=== PATIENT | male | born 1990 | race Caucasian/White ===

== ENCOUNTER 2017-10-10 23:04 | Emergency (ER) | payer SELFPAY ==
[2017-10-11] MEDS ORDERED: Ketorolac Tromethamine 30 MG/ML VIAL ONE (00:19)
== END 2017-10-11 00:30 | disposition home or self-care (01) ==
LOC: ERS 23:04
DX: M54.42 Lumbago with sciatica, left side (principal); M54.41 Lumbago with sciatica, right side; G43.909 Migraine, unspecified, not intractable, without status migrainosus; F17.210 Nicotine dependence, cigarettes, uncomplicated
CPT/HCPCS: 96372; J1885

== ENCOUNTER 2017-10-25 23:51 | Emergency (ER) | payer SELFPAY ==
[2017-10-26] MEDS ORDERED: HYDROcodone/Acetaminophen 10/325 mg Tablet ONE (00:25)
--- NOTE | 2017-10-26 07:52 | RAD ---
LUMBAR SPINE 3 VIEWS: Date: 10/26/17 HISTORY: Low back pain. FINDINGS/IMPRESSION: No fracture, subluxation, or bony destruction is seen. POS: [facility]
== END 2017-10-26 01:35 | disposition home or self-care (01) ==
LOC: ERS 23:51
DX: M54.42 Lumbago with sciatica, left side (principal); G43.909 Migraine, unspecified, not intractable, without status migrainosus; F17.210 Nicotine dependence, cigarettes, uncomplicated
CPT/HCPCS: 72100

== ENCOUNTER 2018-02-04 22:10 | Emergency (ER) | payer SELFPAY ==
[2018-02-04 22:43] LABS: #Basophils 0.1 thou/uL (0.0-0.2); #Eosinphils 0.5 thou/uL (0.0-0.7); #Lymphocytes 3.7 thou/uL (1.20-3.40); #Monocytes 0.8 thou/uL (0.11-0.59); #Neutrophils 4.1 thou/uL (1.40-6.50); %Basophils 1.1 % (0.0-1.0); %Eosinophils 5.9 % (0.0-10.0); %Lymphocytes 39.9 % (21.0-51.0); %Monocytes 9.1 % (0.0-10.0); Hemoglobin 15.3 g/dL (14.0-18.0); Mean Corpuscular HGB CONC 35.4 g/dL (32.0-36.0); Mean Corpuscular Hemoglobin 33.3 pg (27.0-31.0); Mean Corpuscular Volume 94.2 fl (80.0-94.0); Mean Platelet Volume 6.8 fL (7.4-10.4); Platelet Count 328 thou/uL (130-400); RBC Distribution Width 10.8 % (11.5-14.5); Red Blood Cell (RBC) Count 4.58 mill/uL (4.70-6.10); White Blood Cell (WBC) Count 9.3 thou/uL (4.8-10.8)
[2018-02-04 23:04] LABS: ALT (SGPT) 35 U/L (8-55); AST (SGOT) 17 U/L (5-34); Albumin 4.4 g/dL (3.5-5.0); Alkaline Phosphatase 83 U/L (40-150); Anion Gap 12 mmol/L (10-20); BUN (Urea Nitrogen) 20 mg/dL (8.9-20.6); Bilirubin, Total 0.4 mg/dL (0.2-1.2); CK (CPK) 136 U/L (30-200); Calc. Creatinine Clearance 0 mL/min (70-130); Calcium 9.3 mg/dL (7.8-10.44); Carbon Dioxide 26 mmol/L (22-29); Chloride 105 mmol/L (98-107); Estimated GFR-MDRD 71; Globulin 2.9 g/dL (2.4-3.5); Glucose 93 mg/dL (70-105); Protein, Total 7.3 g/dL (6.0-8.3); Sodium 139 mmol/L (136-145)
[2018-02-04 23:07] LABS: CKMB 0.9 ng/mL (0-6.6); Troponin I Less than 0.010 ng/mL (< 0.028)
--- NOTE | 2018-02-04 23:14 | RAD ---
PA AND LATERAL CHEST: Indication: Weakness, dizziness. Comparison: None. FINDINGS: Lungs are clear. Cardiomediastinal silhouette is within normal limits. No acute osseous abnormality i s evident. IMPRESSION: No acute cardiopulmonary abnormality. POS: [facility]
[2018-02-04] MEDS ORDERED: Diazepam 5 MG TAB ONE (23:28)
[2018-02-04] MEDS ORDERED: Ondansetron HCl/PF 4 MG/2 ML Vial ONE (23:28)
[2018-02-05 00:12] LABS: Bilirubin Negative (Negative); Blood, Urine Negative (Negative); Clarity TURBID (Clear); Glucose, Urine (Dipstick) Negative (Negative); Leukocyte Negative (Negative); Nitrite Negative (Negative); Protein, Urine (Dipstick) Negative (Neg-Trace); Specific Gravity, Urine 1.017 (1.002-1.036); pH, Urine 7.5 (5.0-9.0)
[2018-02-05] MEDS ORDERED: Acetaminophen 500 MG TAB ONE (00:50)
--- NOTE | 2018-02-10 20:24 | EKG ---
Test Reason : Blood Pressure : / mmHG Vent. Rate : 084 BPM Atrial Rate : 084 BPM P-R Int : 132 ms QRS Dur : 090 ms QT Int : 344 ms P-R-T Axes : 068 058 068 degrees QTc Int : 406 ms Normal sinus rhythm Normal ECG Confirmed by CHRIS KIRKPATRICK ([id number]), editorial writer MOHINI BLOCK ([id number]) on 02/10/2018 8:23:34 PM Referred By: Confirmed By:CHRIS KIRKPATRICK
== END 2018-02-05 01:08 | disposition home or self-care (01) ==
LOC: ERS 22:10
DX: R07.89 Other chest pain (principal); G43.909 Migraine, unspecified, not intractable, without status migrainosus; F17.210 Nicotine dependence, cigarettes, uncomplicated
CPT/HCPCS: 36415; 71046; 80053; 81003; 82550; 82553; 83690; 84484; 85025; 93005; 96361; 96374; J2405

== ENCOUNTER 2018-04-16 03:55 | Emergency (ER) | payer SELFPAY ==
[2018-04-16] MEDS ORDERED: Ketorolac Tromethamine 60 MG/2 ML VIAL ONE (05:32)
--- NOTE | 2018-04-16 08:28 | RAD ---
THREE VIEWS OF CERVICAL SPINE: DATE: 04/16/18. COMPARISON: None. HISTORY: Right-sided neck pain and shoulder pain which began 1 day ago, pain with movement. FINDINGS: Cervical vertebral body height and alignment are within normal limits. Open-mouth odontoid view demo nstrates a normal-appearing dens in C1-2 articulation. No prevertebral soft tissue swelling noted. If symptoms persist, cross-sectional imaging is advised. IMPRESSION: No acute findings. POS: [facility]
== END 2018-04-16 06:32 | disposition home or self-care (01) ==
LOC: ERS 03:55
DX: S13.9XXA Sprain of joints and ligaments of unspecified parts of neck, initial encounter (principal); M62.838 Other muscle spasm; G43.909 Migraine, unspecified, not intractable, without status migrainosus; F17.210 Nicotine dependence, cigarettes, uncomplicated; X50.0XXA Overexertion from strenuous movement or load, initial encounter
CPT/HCPCS: 72040; 96372; J1885

== ENCOUNTER 2018-06-27 19:45 | Emergency (ER) | payer SELFPAY ==
--- NOTE | 2018-06-27 21:09 | RAD ---
RIGHT HAND THREE VIEWS: 06/27/18 COMPARISON: 03/21/15. HISTORY: Injury and pain. FINDINGS: Joint spaces are preserved. No fracture. No cortical irregularity or periosteal reaction. IMPRESSION: No fracture. POS: [facility]
== END 2018-06-27 21:13 | disposition home or self-care (01) ==
LOC: ERS 19:45
DX: S60.221A Contusion of right hand, initial encounter (principal); F17.210 Nicotine dependence, cigarettes, uncomplicated; W22.01XA Walked into wall, initial encounter

== ENCOUNTER 2018-07-19 21:16 | Emergency (ER) | payer SELFPAY ==
[2018-07-19] MEDS ORDERED: HYDROcodone/Acetaminophen 10/325 mg Tablet ONE (23:25)
--- NOTE | 2018-07-19 23:43 | RAD ---
SINGLE VIEW OF THE ABDOMEN: 07/19/18 COMPARISON: None. HISTORY: Constipation for a week. FINDINGS: Single view of the abdomen shows a nonspecific, nonobstructive bowel gas pattern. Cholecystectomy cli ps are seen. No significant stool retention is seen. IMPRESSION: Nonobstructive bowel gas pattern. POS: [facility]
[2018-07-20] MEDS ORDERED: Magnesium Citrate 300 ML BOT ONE (00:03)
== END 2018-07-20 00:32 | disposition home or self-care (01) ==
LOC: ERS 21:16
DX: K64.4 Residual hemorrhoidal skin tags (principal); K59.00 Constipation, unspecified; G43.909 Migraine, unspecified, not intractable, without status migrainosus; F17.210 Nicotine dependence, cigarettes, uncomplicated
CPT/HCPCS: 74018; 99406

== ENCOUNTER 2018-08-20 19:39 | Emergency (ER) | payer SELFPAY ==
--- NOTE | 2018-08-20 20:15 | RAD ---
RIGHT HAND THREE VIEWS: HISTORY: Right hand pain. FINDINGS: Joint spaces are preserved. No acute fracture, dislocation, or aggressive osseous erosions. IMPRESSION: No acute osseous abnormalities are demonstrated. POS: [facility]
== END 2018-08-20 20:28 | disposition home or self-care (01) ==
LOC: ERS 19:39
DX: S60.221A Contusion of right hand, initial encounter (principal); F17.210 Nicotine dependence, cigarettes, uncomplicated; W22.03XA Walked into furniture, initial encounter

== ENCOUNTER 2018-09-01 21:27 | Emergency (ER) | payer SELFPAY ==
--- NOTE | 2018-09-01 21:54 | RAD ---
RIGHT SHOULDER THREE VIEWS: 09/01/18 HISTORY: Right shoulder injury. FINDINGS: Acromioclavicular and glenohumeral alignment are maintained. No acute fracture or dislocation. IMPRESSION: No acute osseous abnormalities are demonstrated. POS: [facility]
[2018-09-01] MEDS ORDERED: HYDROcodone/Acetaminophen 10/325 mg Tablet ONE (22:19)
== END 2018-09-01 22:52 | disposition home or self-care (01) ==
LOC: ERS 21:27
DX: S43.401A Unspecified sprain of right shoulder joint, initial encounter (principal); J45.909 Unspecified asthma, uncomplicated; G43.909 Migraine, unspecified, not intractable, without status migrainosus; F17.210 Nicotine dependence, cigarettes, uncomplicated; Z71.6 Tobacco abuse counseling; X50.9XXA Other and unspecified overexertion or strenuous movements or postures, initial encounter; Y99.0 Civilian activity done for income or pay
CPT/HCPCS: 99406

== ENCOUNTER 2018-10-12 14:29 | Emergency (ER) | payer SELFPAY ==
[2018-10-12] MEDS ORDERED: Ketorolac Tromethamine 60 MG/2 ML VIAL ONE (14:57)
--- NOTE | 2018-10-12 15:37 | RAD ---
CHEST TWO VIEWS: 10/12/18 COMPARISON: 02/04/18. HISTORY: Cough. FINDINGS: Normal cardiac silhouette. Pulmonary vessels and hilum are normal. Costophrenic angles are clear. No mass. No consolidation. No pneumothorax or osseous abnormalities. IMPRESSION: No acute cardiopulmonary process. POS: [facility]
[2018-10-12] MEDS ORDERED: Dexamethasone 10 MG/ML VIAL ONE (15:44)
--- NOTE | 2018-10-17 14:56 | EKG ---
Test Reason : Blood Pressure : / mmHG Vent. Rate : 076 BPM Atrial Rate : 076 BPM P-R Int : 124 ms QRS Dur : 082 ms QT Int : 364 ms P-R-T Axes : 064 052 046 degrees QTc Int : 409 ms Normal sinus rhythm Normal ECG Confirmed by SHAYY KERN D.O. ([id number]), editorial specialist MOHINI BLOCK ([id number]) on 10/17/2018 2:56:43 PM Referred By: Confirmed By:SHAYY KERN D.O.
== END 2018-10-12 16:26 | disposition home or self-care (01) ==
LOC: ERS 14:29
DX: J45.909 Unspecified asthma, uncomplicated (principal); G43.909 Migraine, unspecified, not intractable, without status migrainosus; F17.210 Nicotine dependence, cigarettes, uncomplicated
CPT/HCPCS: 71046; 93005; 96372; J1100; J1885

== ENCOUNTER 2018-11-07 23:52 | Emergency (ER) | payer SELFPAY ==
[2018-11-08] MEDS ORDERED: Adacel (T-DAP) 0.5 ML SYRINGE ONE (00:22)
--- NOTE | 2018-11-08 07:42 | RAD ---
THREE VIEWS OF THE RIGHT HAND: DATE: 11/08/2018. COMPARISON: None. HISTORY: Pain and swelling/ FINDINGS: Three view examination of the right hand demonstrates no displaced fracture or dislocation. No radio paque foreign body or subcutaneous gas. IMPRESSION: No acute fracture or evidence of dislocation. POS: [facility]
--- NOTE | 2018-11-08 07:43 | RAD ---
THREE VIEWS OF THE RIGHT WRIST: DATE: 11/08/2018. COMPARISON: None. HISTORY: Injury, trauma, pain. FINDINGS: There is no widening of the scapholunate interval. Lateral exam demonstrates normal alignment. No d isplaced fracture or evidence of dislocation. IMPRESSION: No acute fracture or evidence o dislocation. If symptoms persist, followup in 7-10 days with dedicat ed scaphoid views advised. POS: [facility]
== END 2018-11-08 00:27 | disposition home or self-care (01) ==
LOC: ERS 23:52
DX: S60.221A Contusion of right hand, initial encounter (principal); J45.909 Unspecified asthma, uncomplicated; G43.909 Migraine, unspecified, not intractable, without status migrainosus; F17.210 Nicotine dependence, cigarettes, uncomplicated; W22.09XA Striking against other stationary object, initial encounter
CPT/HCPCS: 90715

== ENCOUNTER 2018-11-12 20:54 | Emergency (ER) | payer SELFPAY | END 2018-11-12 21:19 | disposition left against medical advice (07) | LOC: SCSER 20:54 | DX: M25.511 Pain in right shoulder (principal); J45.909 Unspecified asthma, uncomplicated; G43.909 Migraine, unspecified, not intractable, without status migrainosus; F17.210 Nicotine dependence, cigarettes, uncomplicated | CPT/HCPCS: 99282 ==

== ENCOUNTER 2019-01-30 02:41 | Emergency (ER) | payer SELFPAY ==
--- NOTE | 2019-01-30 08:34 | RAD ---
CHEST 1 VIEW: INDICATION: Cough. COMPARISON: Prior exam dated . FINDINGS: The lungs are mildly hyperexpanded and clear. Costophrenic angles are excluded. No pneumothorax is evident. No acute osseous abnormality is evident. IMPRESSION: No definite acute cardiopulmonary abnormality. Limitation of the exam as above. POS: [facility]
== END 2019-01-30 03:59 | disposition home or self-care (01) ==
LOC: ERS 02:41
DX: J20.9 Acute bronchitis, unspecified (principal); J45.909 Unspecified asthma, uncomplicated; F17.210 Nicotine dependence, cigarettes, uncomplicated; Z71.6 Tobacco abuse counseling
CPT/HCPCS: 71045; 87804; 99406

== ENCOUNTER 2019-05-25 03:22 | Emergency (ER) | payer SELFPAY | END 2019-05-25 03:33 | disposition home or self-care (01) | LOC: ERS 03:22 | DX: S80.212A Abrasion, left knee, initial encounter (principal); F17.210 Nicotine dependence, cigarettes, uncomplicated; Z79.51 Long term (current) use of inhaled steroids; Z79.899 Other long term (current) drug therapy; W22.8XXA Striking against or struck by other objects, initial encounter | CPT/HCPCS: 99283 ==

== ENCOUNTER 2019-05-26 15:00 | Emergency (ER) | payer SELFPAY ==
--- NOTE | 2019-05-26 17:32 | CT ---
Head CT without contrast 05/26/2019: COMPARISON: 04/29/2017 HISTORY: Headache TECHNIQUE: Axial CT imaging at 5 mm intervals from vertex through skull base without contrast FINDINGS: Mild mucosal thickening of the ethmoid air cells bilaterally. No acute osseous abnormality. No intracranial hemorrhage, midline shift, mass effect, or ventricular enlargement. IMPRESSION: No acute findings.
[2019-05-26] MEDS ORDERED: diphenhydrAMINE 50 MG/ML VIAL ONE (17:39)
[2019-05-26] MEDS ORDERED: Metoclopramide HCl 10 MG/2 ML VIAL ONE (17:39)
[2019-05-26] MEDS ORDERED: Acetaminophen 500 MG TAB ONE (17:39)
== END 2019-05-26 18:59 | disposition home or self-care (01) ==
LOC: ERS 15:00
DX: S00.03XA Contusion of scalp, initial encounter (principal); F17.210 Nicotine dependence, cigarettes, uncomplicated; G43.909 Migraine, unspecified, not intractable, without status migrainosus; W19.XXXA Unspecified fall, initial encounter
CPT/HCPCS: 70450; 96365; 96375; J1200; J2765

== ENCOUNTER 2019-08-04 02:43 | Emergency (ER) | payer SELFPAY ==
[2019-08-04] MEDS ORDERED: Acetaminophen 500 MG TAB ONE (03:30)
[2019-08-04] MEDS ORDERED: diphenhydrAMINE 50 MG/ML VIAL ONE (03:30)
[2019-08-04] MEDS ORDERED: Metoclopramide HCl 10 MG/2 ML VIAL ONE (03:30)
--- NOTE | 2019-08-04 07:48 | CT ---
PRELIMINARY REPORT/[facility]/EMERGENCY AFTER HOURS PROCEDURE PROCEDURE INFORMATION: Exam: CT Head Without Contrast Exam date and time: 08/04/2019 3:20 AM Clinical history: 29 years old, male; Weakness, extremity; Patient HX: Er 3. No previous in pacs. 29 y/o m presents to ED C/O x 1 week of worsening neck pain that began after PT turned his head while getting out of bed. He describes hearing a "pop" at the time. TECHNIQUE: Imaging protocol: Computed tomography of the head without contrast. COMPARISON: No relevant prior studies available. FINDINGS: Brain: No hemorrhage. Unremarkable white matter. No mass effect. Ventricles: No ventriculomegaly. Bones/joints: No acute fracture. Sinuses: Scattered paranasal sinuses mucosal thickenning. Mastoid air cells: Visualized mastoid air cells are well aerated. Soft tissues: Unremarkable. IMPRESSION: No acute intracranial abnormality. Thank you for allowing us to participate in the care of your patient. Dictated and Authenticated by: Marlene Cavazos MD 08/04/2019 4:15 AM Central Time ([place] & [place]) FINAL REPORT I agree with the preliminary report provided. CODE QA POS: [facility]
--- NOTE | 2019-08-04 07:52 | CT ---
PRELIMINARY REPORT/[facility]/EMERGENCY AFTER HOURS PROCEDURE PROCEDURE INFORMATION: Exam: CT Angiography Head Without And With Contrast Exam date and time: 08/04/2019 3:20 AM Clinical history: 29 years old, male; Weakness; Patient HX: Er 3. No previous in pacs. 29 y/o m prese nts to ED C/O x 1 week of worsening neck pain that began after PT turned his head while getting out o f bed. He describes hearing a "pop" at the time. TECHNIQUE: Imaging protocol: Computed tomographic angiography of the head without and with intravenous contrast. 3D rendering: MIP reconstructed images were created and reviewed. COMPARISON: No relevant prior studies available. FINDINGS: Right internal carotid artery: Intracranial segment is patent with no significant stenosis. No aneury sm. Right anterior cerebral artery: No occlusion or significant stenosis. No aneurysm. Right middle cerebral artery: No occlusion or significant stenosis. No aneurysm. Right posterior cerebral artery: No occlusion or significant stenosis. No aneurysm. Right vertebral artery: No occlusion or significant stenosis. No aneurysm. Left internal carotid artery: Intracranial segment is patent with no significant stenosis. No aneurys m. Left anterior cerebral artery: No occlusion or significant stenosis. No aneurysm. Left middle cerebral artery: No occlusion or significant stenosis. No aneurysm. Left posterior cerebral artery: No occlusion or significant stenosis. No aneurysm. Left vertebral artery: No occlusion or significant stenosis. No aneurysm. Basilar artery: No occlusion or significant stenosis. No aneurysm. HEAD: Brain: No hemorrhage. No significant white matter disease. No edema. Ventricles: No ventriculomegaly. Bones/joints: No acute fracture. Sinuses: Scattered paranasal sinuses mucosal thickenning.. Mastoid air cells: Visualized mastoids are normal. No mastoid effusion. Soft tissues: Unremarkable. IMPRESSION: No acute findings. PROCEDURE INFORMATION: Exam: CT Angiography Neck With Contrast Exam date and time: 08/04/2019 3:20 AM Clinical history: 29 years old, male; Weakness; Patient HX: Er 3. No previous in pacs. 29 y/o m prese nts to ED C/O x 1 week of worsening neck pain that began after PT turned his head while getting out o f bed. He describes hearing a "pop" at the time. TECHNIQUE: Imaging protocol: Computed tomography angiography of the neck with intravenous contrast. 3D rendering: MIP reconstructed images were created and reviewed. COMPARISON: No relevant prior studies available. FINDINGS: VASCULATURE: Right common carotid artery: Unremarkable. No stenosis. No dissection or occlusion. Right internal carotid artery: Unremarkable extracranial segment. No stenosis. No dissection or occlu barry. Right external carotid artery: Unremarkable. No occlusion or stenosis of the origin. Right vertebral artery: Unremarkable. No stenosis. No dissection or occlusion. Left common carotid artery: Unremarkable. No stenosis. No dissection or occlusion. Left internal carotid artery: Unremarkable extracranial segment. No stenosis. No dissection or occlus ion. Left external carotid artery: Unremarkable. No occlusion or stenosis of the origin. Left vertebral artery: Unremarkable. No stenosis. No dissection or occlusion. NECK: Bones/joints: No acute fracture. Soft tissues: No significant soft tissue swelling. IMPRESSION: No acute findings. COMMENT: Reference per NASCET criteria for degree of stenosis: Mild: less than 50% stenosis. Moderate: 50-69% stenosis. Severe: 70-94% stenosis. Near occlusion: 95-99% stenosis. Thank you for allowing us to participate in the care of your patient. Dictated and Authenticated by: Marlene Cavazos MD 08/04/2019 4:12 AM Central Time ([place] & [place]) FINAL REPORT I agree with the preliminary report provided. CODE QA POS:
[2019-08-04] MEDS ORDERED: ISOVUE-370 76%-LOCM 1 ML ONE (12:21)
== END 2019-08-04 04:37 | disposition home or self-care (01) ==
LOC: ERS 02:43
DX: M54.2 Cervicalgia (principal); J45.909 Unspecified asthma, uncomplicated; G43.909 Migraine, unspecified, not intractable, without status migrainosus; F17.210 Nicotine dependence, cigarettes, uncomplicated
CPT/HCPCS: 70450; 70496; 70498; 96365; 96375; J1200; J2765; Q9966

== ENCOUNTER 2019-10-11 03:51 | Emergency (ER) | payer SELFPAY ==
[2019-10-11] MEDS ORDERED: Ketorolac Tromethamine 30 MG/ML VIAL ONE (04:06)
[2019-10-11] MEDS ORDERED: Ondansetron PF 4 MG/2 ML Vial ONE (04:20)
[2019-10-11 04:26] LABS: #Basophils 0.1 thou/uL (0.0-0.2); #Eosinphils 0.1 thou/uL (0.0-0.7); #Lymphocytes 2.2 thou/uL (1.20-3.40); #Monocytes 1.4 thou/uL (0.11-0.59); %Basophils 0.5 % (0.0-1.0); %Lymphocytes 18.8 % (21.0-51.0); %Monocytes 11.8 % (0.0-10.0); %Neutrophils 67.9 % (42.0-75.0); Hemoglobin 15.1 g/dL (14.0-18.0); Mean Corpuscular HGB CONC 34.5 g/dL (32.0-36.0); Mean Corpuscular Volume 92.7 fL (78.0-98.0); Platelet Count 322 thou/uL (130-400); Red Blood Cell (RBC) Count 4.72 mill/uL (4.70-6.10); White Blood Cell (WBC) Count 11.8 thou/uL (4.8-10.8)
[2019-10-11 04:46] LABS: ALT (SGPT) 13 U/L (8-55); AST (SGOT) 16 U/L (5-34); Albumin 4.2 g/dL (3.5-5.0); Alkaline Phosphatase 81 U/L (40-110); Anion Gap 12 mmol/L (10-20); BUN (Urea Nitrogen) 13 mg/dL (8.9-20.6); Bilirubin, Total 0.7 mg/dL (0.2-1.2); Calc. Creatinine Clearance 0 mL/min (70-130); Calcium 8.9 mg/dL (7.8-10.44); Carbon Dioxide 23 mmol/L (22-29); Chloride 106 mmol/L (98-107); Estimated GFR-MDRD 79; Globulin 3.1 g/dL (2.4-3.5); Glucose 107 mg/dL (70-105); Potassium 3.5 mmol/L (3.5-5.1); Protein, Total 7.3 g/dL (6.0-8.3); Sodium 137 mmol/L (136-145)
--- NOTE | 2019-10-11 07:39 | RAD ---
XR Chest Pa Lat STANDARD HISTORY: Fever, nausea and vomiting COMPARISON: 10/12/2018 FINDINGS: The heart size is normal. The lungs are well expanded without focal areas of consolidation, pneumothorax or pleural effusions. IMPRESSION: No radiographic evidence of acute cardiopulmonary process.
== END 2019-10-11 06:21 | disposition home or self-care (01) ==
LOC: ERS 03:51
DX: J11.1 Influenza due to unidentified influenza virus with other respiratory manifestations (principal); M79.10 Myalgia, unspecified site; J45.909 Unspecified asthma, uncomplicated; F17.210 Nicotine dependence, cigarettes, uncomplicated
CPT/HCPCS: 71046; 80053; 85025; 87804; 96361; 96374; 96375; J1885; J2405

== ENCOUNTER 2019-11-12 01:37 | Emergency (ER) | payer SELFPAY ==
[2019-11-12] MEDS ORDERED: Acetaminophen 500 MG TAB ONE (01:51)
[2019-11-12] MEDS ORDERED: Ondansetron ODT 8 MG TAB ONE (01:51)
== END 2019-11-12 02:20 | disposition home or self-care (01) ==
LOC: ERS 01:37
DX: J11.1 Influenza due to unidentified influenza virus with other respiratory manifestations (principal); F41.9 Anxiety disorder, unspecified; F17.210 Nicotine dependence, cigarettes, uncomplicated; G43.909 Migraine, unspecified, not intractable, without status migrainosus
CPT/HCPCS: 87804; 99283

== ENCOUNTER 2020-02-25 23:31 | Inpatient (IN) | payer SELFPAY ==
[2020-02-26] MEDS ORDERED: cefTRIAXone\\ROCEPHIN 1 GM VIAL ONE (00:42)
[2020-02-26] MEDS ORDERED: Ondansetron PF 4 MG/2 ML Vial ONE ×2 (00:42→09:58)
[2020-02-26] MEDS ORDERED: Morphine 4 MG/ML VIAL ONE (00:42)
[2020-02-26 00:57] LABS: #Basophils 0.1 thou/uL (0.0-0.2); #Lymphocytes 2.7 thou/uL (1.20-3.40); #Monocytes 1.2 thou/uL (0.11-0.59); #Neutrophils 13.1 thou/uL (1.40-6.50); %Basophils 0.6 % (0.0-1.0); %Eosinophils 0.3 % (0.0-10.0); %Lymphocytes 15.5 % (21.0-51.0); %Monocytes 7.1 % (0.0-10.0); %Neutrophils 76.6 % (42.0-75.0); Hemoglobin 14.8 g/dL (14.0-18.0); Mean Corpuscular HGB CONC 35.5 g/dL (32.0-36.0); Mean Corpuscular Hemoglobin 33.8 pg (27.0-31.0); Mean Corpuscular Volume 95.1 fL (78.0-98.0); Mean Platelet Volume 7.6 fL (7.4-10.4); Platelet Count 297 thou/uL (130-400); RBC Distribution Width 11.2 % (11.5-14.5); Red Blood Cell (RBC) Count 4.37 mill/uL (4.70-6.10); White Blood Cell (WBC) Count 17.1 thou/uL (4.8-10.8)
[2020-02-26] MEDS ORDERED: metroNIDAZOLE 500 MG/100 ML BAG ONE ×2 (01:10→07:09)
[2020-02-26 01:19] LABS: ALT (SGPT) 10 U/L (8-55); AST (SGOT) 13 U/L (5-34); Albumin 4.3 g/dL (3.5-5.0); Alkaline Phosphatase 73 U/L (40-110); Anion Gap 13 mmol/L (10-20); BUN (Urea Nitrogen) 12 mg/dL (8.9-20.6); Calc. Creatinine Clearance 0 mL/min (70-130); Calcium 9.2 mg/dL (7.8-10.44); Carbon Dioxide 24 mmol/L (22-29); Chloride 102 mmol/L (98-107); Estimated GFR-MDRD 83; Globulin 3.2 g/dL (2.4-3.5); Glucose 97 mg/dL (70-105); Potassium 3.5 mmol/L (3.5-5.1); Protein, Total 7.5 g/dL (6.0-8.3); Sodium 135 mmol/L (136-145)
[2020-02-26 02:43] VITALS: BMI 20.9
[2020-02-26] MEDS: Dextrose 5 % And 0.9 % NaCl 1,000 ML IV SCH ×2 (03:01→12:54)
[2020-02-26] MEDS ORDERED: Ketorolac Tromethamine 30 MG/ML VIAL IVP SCH (06:00)
[2020-02-26] MEDS ORDERED: Lidocaine 2% Jelly 5 ML TUBE ONE (06:38)
[2020-02-26] MEDS ORDERED: Fentanyl 100 MCG/2 ML VIAL ONE ×2 (06:38→09:24)
[2020-02-26] MEDS ORDERED: Bacitracin Zinc Ointment 30 gm TUBE ONE (06:42)
[2020-02-26] MEDS ORDERED: Bupivacaine PF 0.5% 30 ML VIAL ONE (06:42)
[2020-02-26] MEDS ORDERED: Thrombin 5000 UNITS/5 ML VIAL ONE (06:42)
[2020-02-26] MEDS ORDERED: Promethazine HCl 25 MG/ML VIAL IM PRN ×4 (07:50→10:31)
[2020-02-26] MEDS ORDERED: Acetaminophen/Codeine 30-300mg Tablet PO PRN (07:50)
[2020-02-26] MEDS ORDERED: Bisacodyl 10 MG SUPP PR PRN ×2 (07:50→10:28)
[2020-02-26] MEDS ORDERED: Milk Of Magnesia 30 ML UDCUP PO PRN ×2 (07:50→10:28)
[2020-02-26] MEDS ORDERED: HYDROcodone/Acetaminophen 5/325 mg Tablet PO PRN ×2 (07:50→10:28)
[2020-02-26] MEDS ORDERED: Fentanyl 100 MCG/2 ML VIAL SLOW IVP PRN ×2 (07:50→10:28)
[2020-02-26] MEDS ORDERED: Ondansetron PF 4 MG/2 ML Vial IV PRN ×2 (07:50→10:29)
[2020-02-26] MEDS ORDERED: Acetaminophen 325 MG TAB PO PRN ×2 (07:50→10:27)
[2020-02-26] MEDS ORDERED: Morphine 4 MG/ML VIAL SLOW IVP PRN (07:50)
[2020-02-26] MEDS ORDERED: Meperidine HCl/PF 25 MG/ML VIAL IM PRN ×2 (07:55→10:29)
[2020-02-26] MEDS ORDERED: Promethazine HCl 25 MG/ML VIAL SLOW IVP PRN ×2 (08:48→10:31)
[2020-02-26] MEDS ORDERED: Ondansetron HCl/PF 4 MG/2 ML Vial IVP PRN ×2 (08:48→10:31)
[2020-02-26] MEDS ORDERED: Vancomycin 1 GM in Premix Bag 1 BAG IVPB SCH (09:00)
[2020-02-26] MEDS ORDERED: Aspirin 81 mg Enteric Coated Tablet PO SCH ×2 (09:00→10:45)
[2020-02-26] MEDS ORDERED: busPIRone HCl 10 MG TAB PO PRN ×2 (09:12→10:31)
[2020-02-26] MEDS ORDERED: Glycopyrrolate 0.2 MG/ML 5 ML SYRINGE ONE (09:58)
[2020-02-26] MEDS ORDERED: Succinylcholine Chloride 20 MG/ML 10 ml SYRINGE FS ONE (09:58)
[2020-02-26] MEDS ORDERED: EPHEDRINE 25 MG/5 ML SYRINGE ONE (09:58)
[2020-02-26] MEDS ORDERED: Rocuronium Bromide 10 MG/ML (10ML VIAL) ONE (09:58)
[2020-02-26] MEDS ORDERED: Dexamethasone 20 MG/5 ML VIAL ONE (09:58)
[2020-02-26] MEDS ORDERED: Ketorolac Tromethamine 30 MG/ML VIAL ONE (09:58)
[2020-02-26] MEDS ORDERED: Lidocaine 1% PF 5 ML VIAL ONE (09:58)
[2020-02-26] MEDS ORDERED: metroNIDAZOLE 500 MG in Premix Bag 1 BAG IVPB SCH (10:00)
[2020-02-26] MEDS: Vancomycin 1.5 GRAM/300 ML BAG 1.5 GM in Premix Bag 1 BAG IVPB SCH ×2 (10:26→20:13)
[2020-02-26] MEDS: Sodium Chloride 0.9% 100 ML IV SCH ×7 (10:29→18:25)
[2020-02-26] MEDS ORDERED: Dextrose 5 % And 0.9 % NaCl 1,000 ML IV SCH (10:30)
[2020-02-26] MEDS: Morphine 4 MG/ML VIAL SLOW IVP PRN ×2 (10:48→20:12)
--- NOTE | 2020-02-26 12:32 | OP ---
DATE OF PROCEDURE: 02/26/2020 PREOPERATIVE DIAGNOSIS: Right dorsal hand cat bite abscess. FINDINGS: 1. Right dorsal hand cat bite abscess approximately 2 cm in diameter. 2. Extensor tenosynovitis secondary to the abscess, ring finger and then small finger tendons. 3. No evidence of joint involvement and the spread was just to but not including the retinaculum. PROCEDURES PERFORMED: 1. Incision and drainage of cat bite abscess of complex right dorsal hand, with early sepsis__. 2. Extensor tenosynovectomy, extensor tendons, right small finger. 3. Extensor tenosynovectomy, extensor tendons, right ring finger. COMPLICATIONS: None. TOURNIQUET TIME: 10 minutes. BLOOD LOSS: Approximately 20 mL. INDICATIONS FOR PROCEDURE: The patient is now 36 hours at the time of surgery after cat bite, his own domestic cat, with secondary abscess that did not resolve to conservative treatment. White count elevated to 17,000. DESCRIPTION OF PROCEDURE: After successful general endotracheal anesthesia, the limb was prepped and draped. The patient had the wound inspected and he had a small scratch on the dorsum of the DRUJ, but it was not fluctuant and did not penetrate the epidermis. He did, however, have 2 small 5 mm cat bites without fluctuance that were over the hypothenar junction of the dorsal and palmar skin, but he had a 2 cm wound which had fluctuance and already begun to drain purulence. First, we opened the small wounds and found some blood without evidence of gross purulence. Then , we opened the more dorsal wound and incorporated in a Stephanie type zigzag incision. The transverse limb with 2 longitudinal limbs at angles. We carried through skin and subcutaneous tissue, medial purulence escaped. There was an abscess cavity dorsal to the tendons which we resected, the posterior wall of the abscess cavity had become part of the extensor tendon sheath. Once we debrided the abscess and drained it, we took culture of mucopurulence and followed it 360 degrees until we removed all the cavity to include the portion adherent to the dermis. We then began a radical extensor tenosynovectomy of the small finger primary DC and its abductor digiti minimi. Once this was done, we opened the retinaculum approximately 1 cm in line with this tendon and then flexion extension revealed no evidence of purulence here. We also did the same radical extensor tenosynovectomy with same technique , distance, and level on the ring finger. The middle finger had no extensor tenosynovectomy. We released the tourniquet. We irrigated all the incisions with a total of 3 L normal saline and Pulsavac pressure. We held pressure for 2 minutes, obtained hemostasis, and then packed the primary wound down to the level of the ulnar incisions. This was with normal saline soaked gauze. The patient had good hemostasis. We then placed 4x4s, dry Kerlix to include weaving it into web spaces for bulky hand dressing and placed on top of this an ulnar gutter splint with the MP joints free and a 4-inch Bala wrap. The patient left the operating room without evidence of anesthetic or operative complication. Job ID: [id number] [facility]
[2020-02-26] MEDS ORDERED: Gentamicin 80 MG/2 ML VIAL IVPB SCH (14:00)
[2020-02-26] MEDS: Ketorolac Tromethamine 30 MG/ML VIAL IVP SCH ×2 (14:01→22:41)
[2020-02-26] MEDS ORDERED: Escitalopram Oxalate 20 mg Tablet PO SCH (18:00)
[2020-02-26] MEDS: Escitalopram Oxalate 20 mg Tablet PO SCH (18:11)
[2020-02-26] MEDS: metroNIDAZOLE 500 MG in Premix Bag 1 BAG IVPB SCH (18:16)
[2020-02-26] MEDS: Aspirin 81 mg Enteric Coated Tablet PO SCH (20:10)
[2020-02-27] MEDS: cefTRIAXone\\ROCEPHIN 2 GM in Sodium Chloride 0.9% 100 ML IVPB SCH (00:31)
[2020-02-27] MEDS ORDERED: cefTRIAXone\\ROCEPHIN 2 GM in Sodium Chloride 0.9% 100 ML IVPB SCH (01:00)
[2020-02-27] MEDS: metroNIDAZOLE 500 MG in Premix Bag 1 BAG IVPB SCH ×3 (01:35→17:30)
[2020-02-27] MEDS: Acetaminophen/Codeine 30-300mg Tablet PO PRN ×4 (01:41→22:48)
[2020-02-27] MEDS: Ketorolac Tromethamine 30 MG/ML VIAL IVP SCH ×3 (06:23→20:50)
[2020-02-27] MEDS: Morphine 4 MG/ML VIAL SLOW IVP PRN (07:31)
[2020-02-27] MEDS ORDERED: TETANUS AND DIPHTHERIA TOX/PF 0.5 ML DISP.SYRIN IM SCH ×2 (08:00)
[2020-02-27 08:07] LABS: #Eosinphils 0.1 thou/uL (0.0-0.7); #Lymphocytes 2.6 thou/uL (1.20-3.40); #Monocytes 0.8 thou/uL (0.11-0.59); #Neutrophils 8.4 thou/uL (1.40-6.50); %Basophils 0.3 % (0.0-1.0); %Eosinophils 0.6 % (0.0-10.0); %Lymphocytes 21.6 % (21.0-51.0); %Monocytes 6.7 % (0.0-10.0); %Neutrophils 70.7 % (42.0-75.0); Hemoglobin 11.8 g/dL (14.0-18.0); Mean Corpuscular HGB CONC 33.5 g/dL (32.0-36.0); Mean Corpuscular Hemoglobin 32.2 pg (27.0-31.0); Mean Corpuscular Volume 96.2 fL (78.0-98.0); Mean Platelet Volume 7.6 fL (7.4-10.4); Platelet Count 256 thou/uL (130-400); RBC Distribution Width 11.2 % (11.5-14.5); Red Blood Cell (RBC) Count 3.67 mill/uL (4.70-6.10); White Blood Cell (WBC) Count 11.9 thou/uL (4.8-10.8)
[2020-02-27 08:25] LABS: ALT (SGPT) 10 U/L (8-55); AST (SGOT) 9 U/L (5-34); Albumin 3.3 g/dL (3.5-5.0); Alkaline Phosphatase 56 U/L (40-110); Anion Gap 11 mmol/L (10-20); BUN (Urea Nitrogen) 10 mg/dL (8.9-20.6); Bilirubin, Total 0.4 mg/dL (0.2-1.2); Calc. Creatinine Clearance 121 mL/min (70-130); Calcium 8.5 mg/dL (7.8-10.44); Carbon Dioxide 21 mmol/L (22-29); Chloride 109 mmol/L (98-107); Estimated GFR-MDRD Greater than 90; Globulin 2.5 g/dL (2.4-3.5); Glucose 106 mg/dL (70-105); Potassium 3.6 mmol/L (3.5-5.1); Protein, Total 5.8 g/dL (6.0-8.3); Sodium 137 mmol/L (136-145)
[2020-02-27] MEDS: Vancomycin 1.5 GRAM/300 ML BAG 1.5 GM in Premix Bag 1 BAG IVPB SCH ×2 (08:53→20:50)
[2020-02-27] MEDS: Aspirin 81 mg Enteric Coated Tablet PO SCH ×2 (08:54→20:50)
[2020-02-27] MEDS: Escitalopram Oxalate 20 mg Tablet PO SCH (17:30)
[2020-02-27 20:22] LABS: Vancomycin, Trough 13.8 ug/mL
[2020-02-28] MEDS: cefTRIAXone\\ROCEPHIN 2 GM in Sodium Chloride 0.9% 100 ML IVPB SCH (00:49)
[2020-02-28] MEDS: metroNIDAZOLE 500 MG in Premix Bag 1 BAG IVPB SCH (01:28)
[2020-02-28] MEDS: Ketorolac Tromethamine 30 MG/ML VIAL IVP SCH (05:33)
[2020-02-28 05:56] LABS: #Basophils 0.1 thou/uL (0.0-0.2); #Eosinphils 0.1 thou/uL (0.0-0.7); #Lymphocytes 4.2 thou/uL (1.20-3.40); #Monocytes 0.7 thou/uL (0.11-0.59); #Neutrophils 4.8 thou/uL (1.40-6.50); %Basophils 1.2 % (0.0-1.0); %Eosinophils 1.4 % (0.0-10.0); %Lymphocytes 42.4 % (21.0-51.0); %Monocytes 7.2 % (0.0-10.0); %Neutrophils 47.8 % (42.0-75.0); Hemoglobin 13.5 g/dL (14.0-18.0); Mean Corpuscular HGB CONC 32.3 g/dL (32.0-36.0); Mean Corpuscular Hemoglobin 31.3 pg (27.0-31.0); Mean Corpuscular Volume 96.8 fL (78.0-98.0); Mean Platelet Volume 7.6 fL (7.4-10.4); Platelet Count 314 thou/uL (130-400); RBC Distribution Width 11.3 % (11.5-14.5); Red Blood Cell (RBC) Count 4.32 mill/uL (4.70-6.10)
[2020-02-28] MEDS ORDERED: Vancomycin 1 GM in Premix Bag 1 BAG IVPB SCH (06:00)
[2020-02-28] MEDS: Acetaminophen/Codeine 30-300mg Tablet PO PRN (06:25)
[2020-02-28] MEDS: Aspirin 81 mg Enteric Coated Tablet PO SCH (08:25)
[2020-02-28 09:09] VITALS: BP 128/76; TEMP 98
== END 2020-02-28 09:55 | disposition home or self-care (01) | DRG 854 ==
LOC: ERS 23:31 → ONC 02-26 01:01 → UNDODISIN 02-26 09:15
PROVIDERS: ADMIT Orthopaedic Surgery Hand Surgery; ATTEND Orthopaedic Surgery Hand Surgery
PROC: 0J9J0ZZ Drainage of Right Hand Subcutaneous Tissue and Fascia, Open Approach (ICD-10-PCS; principal; 2020-02-26)
PROC: 0LB70ZZ Excision of Right Hand Tendon, Open Approach (ICD-10-PCS; 2020-02-26)
DX: A41.9 Sepsis, unspecified organism (principal); L02.511 Cutaneous abscess of right hand; M65.841 Other synovitis and tenosynovitis, right hand; J45.909 Unspecified asthma, uncomplicated; G43.909 Migraine, unspecified, not intractable, without status migrainosus; F41.9 Anxiety disorder, unspecified; F17.210 Nicotine dependence, cigarettes, uncomplicated; W55.01XA Bitten by cat, initial encounter; Z90.49 Acquired absence of other specified parts of digestive tract
CPT/HCPCS: 36415; 80053; 80202; 83605; 85025; 87040; 87070; 87077; 87186; 87205; 96365; 96367; 96375; J0696; J1100; J1580; J1885; J2001; J2270; J2405; J3010; J3370; J3490; S0020

== ENCOUNTER 2021-04-24 01:32 | Emergency (ER) | payer SELFPAY ==
[2021-04-24] MEDS ORDERED: diphenhydrAMINE 50 MG/ML VIAL ONE (01:48)
[2021-04-24] MEDS ORDERED: Metoclopramide HCl 10 MG/2 ML VIAL ONE (01:48)
[2021-04-24] MEDS ORDERED: Ketorolac Tromethamine 30 MG/ML VIAL ONE (01:48)
== END 2021-04-24 03:03 | disposition home or self-care (01) ==
LOC: ERS 01:32
DX: G43.909 Migraine, unspecified, not intractable, without status migrainosus (principal); F17.210 Nicotine dependence, cigarettes, uncomplicated; J45.909 Unspecified asthma, uncomplicated
CPT/HCPCS: 96365; 96375; J1200; J1885; J2765

== ENCOUNTER 2021-06-27 23:01 | Emergency (ER) | payer SELFPAY ==
[2021-06-28 13:05] LABS: SARS-CoV-2 PCR by NAA DETECTED (NotDetected)
== END 2021-06-28 02:27 | disposition home or self-care (01) ==
LOC: ERS 23:01
DX: U07.1 COVID-19 (principal); F17.210 Nicotine dependence, cigarettes, uncomplicated; Z79.899 Other long term (current) drug therapy
CPT/HCPCS: 99283; U0003; U0005

== ENCOUNTER 2022-07-30 21:52 | Emergency (ER) | payer SELFPAY | END 2022-07-30 22:38 | disposition left against medical advice (07) | LOC: ERS 21:52 | DX: Z53.21 Procedure and treatment not carried out due to patient leaving prior to being seen by health care provider (principal) ==

== ENCOUNTER 2023-01-16 03:15 | Emergency (ER) | payer SELFPAY ==
[2023-01-16] MEDS ORDERED: Ketorolac Tromethamine 30 MG/ML VIAL ONE (06:18)
[2023-01-16] MEDS ORDERED: diphenhydrAMINE 50 MG/ML VIAL ONE (06:18)
[2023-01-16] MEDS ORDERED: Metoclopramide HCl 10 MG/2 ML VIAL ONE (06:18)
== END 2023-01-16 07:03 | disposition home or self-care (01) ==
LOC: ERS 03:15
DX: G43.909 Migraine, unspecified, not intractable, without status migrainosus (principal); F17.210 Nicotine dependence, cigarettes, uncomplicated
CPT/HCPCS: 96374; 96375; J1200; J1885; J2765

== ENCOUNTER 2024-09-23 09:27 | Emergency (ER) | payer SELFPAY ==
[2024-09-23] MEDS ORDERED: Lidocaine 1% PF 5 ML VIAL ONE (09:55)
[2024-09-23] MEDS ORDERED: Ibuprofen 800 MG TAB ONE (10:08)
== END 2024-09-23 12:41 | disposition home or self-care (01) ==
LOC: ERS 09:27
DX: L03.011 Cellulitis of right finger (principal); Z55.6 Problems related to health literacy
CPT/HCPCS: 10060; 87070; 87077; 87186; 87205

== ENCOUNTER 2024-09-27 01:59 | Emergency (ER) | payer SELFPAY ==
[2024-09-27] MEDS ORDERED: Ketorolac Tromethamine 30 MG (1 mL) VIAL ONE (02:17)
[2024-09-27] MEDS ORDERED: diphenhydrAMINE 50 MG/ML VIAL ONE (02:17)
[2024-09-27] MEDS ORDERED: Metoclopramide HCl 10 MG (2 mL) VIAL ONE (02:17)
== END 2024-09-27 03:22 | disposition home or self-care (01) ==
LOC: ERS 01:59
DX: G43.909 Migraine, unspecified, not intractable, without status migrainosus (principal); F17.210 Nicotine dependence, cigarettes, uncomplicated
CPT/HCPCS: 96374; 96375; J1200; J1885; J2765